=== PATIENT | female | born 1990 | race American Indian/Alaskan Native ===

== ENCOUNTER 2018-03-03 21:42 | Emergency (ER) | payer OTHER ==
[2018-03-03 21:53] VITALS: BMI 46.5
--- NOTE | 2018-03-03 21:59 | ED PDOC ---
Arrival/HPI - General Time Seen by Provider: 03/03/18 21:59 Historian: Patient - History of Present Illness Narrative History of Present Illness (Text): 03/03/18 21:59 This 28 yo female presents to this ED c/o throat feels itching and swollen after she accidentally swallowed scallops x [employer]. Patient stated she is allergic to shellfish. Patient denies sob, cp, skin rash, dizziness, tongue swelling, dysphagia, cough, wheezing, or abnormal gait. Time/Duration: Other (see hpi) Context: Home Past Medical History - Provider Review Nursing Documentation Reviewed: Yes - Infectious Disease Hx of Infectious Diseases: None - Pulmonary Hx Asthma: Yes - Psychiatric Hx Substance Use: No - Anesthesia Hx Anesthesia: No Family/Social History - Physician Review Nursing Documentation Reviewed: Yes Family/Social History: Other (noncontributory) Smoking Status: Unknown If Ever Smoked Hx Alcohol Use: No Hx Substance Use: No Allergies/Home Meds Allergies/Adverse Reactions: Allergies shellfish derived Allergy (Verified 03/03/18 21:53) RASH Home Medications: Home Meds Medication Instructions Recorded Confirmed Albuterol HFA [Ventolin HFA 90 1 puff INH PRN PRN 03/03/18 03/03/18 mcg/actuation (8 g)] Review of Systems - Review of Systems Constitutional: Normal. absent: Fatigue, Weight Change, Fevers Eyes: Normal ENT: Other (see hpi) Respiratory: Normal. absent: SOB, Cough, Sputum, Wheezing Cardiovascular: Normal. absent: Chest Pain, Palpitations, Edema, Calf Pain, DE PAZ , Orthopnea, Syncope Gastrointestinal: Normal. absent: Abdominal Pain, Nausea, Vomiting Genitourinary Female: Normal. absent: Dysuria, Frequency Musculoskeletal: Normal. absent: Back Pain, Neck Pain Skin: Normal. absent: Rash Neurological: Normal. absent: Headache, Dizziness Endocrine: Normal Hemo/Lymphatic: Normal Psychiatric: Normal. absent: Anxiety Physical Exam Vital Signs Temp Pulse Resp BP Pulse Ox 03/03/18 22:02 98.8 F 85 18 155/82 H 98 Temperature: Afebrile Blood Pressure: Normal Pulse: Regular Respiratory Rate: Normal Appearance: Positive for: Well-Appearing, Non-Toxic, Comfortable Pain Distress: None Mental Status: Positive for: Alert and Oriented X 3 - Systems Exam Head: Present: Atraumatic, Normocephalic Pupils: Present: PERRL Extroacular Muscles: Present: EOMI Conjunctiva: Present: Normal Mouth: Present: Moist Mucous Membranes, Normal Lips, Normal Tounge. No: Drooling Pharnyx: Present: Normal. No: ERYTHEMA, EXUDATE, TONSILS ENLARGED, Peritonsilar Swelling, Uvular Deviation, Muffled/Hoarse Voice, Strider, Soft Palate/Uvular Edema Neck: Present: Normal Range of Motion Respiratory/Chest: Present: Clear to Auscultation, Good Air Exchange. No: Respiratory Distress, Accessory Muscle Use Cardiovascular: Present: Regular Rate and Rhythm, Normal S1, S2. No: Murmurs Abdomen: No: Tenderness, Distention, Peritoneal Signs Back: Present: Normal Inspection Upper Extremity: Present: Normal Inspection. No: Cyanosis, Edema Lower Extremity: Present: Normal Inspection. No: Edema Neurological: Present: GCS=15, CN II-XII Intact, Speech Normal Skin: Present: Warm, Dry, Normal Color. No: Rashes Psychiatric: Present: Alert, Oriented x 3, Normal Insight, Normal Concentration Medical Decision Making ED Course and Treatment: 03/04/18 00:46 Re-evaluation. Patient feels better. Discussed results and plan with patient who expresses understanding. All questions answered and there is agreement with the plan to discharge home with instructions. Patient stable for discharge. Return if symptoms persist or worsen. Lungs CTA b/l. Oropharyngeal is patent. Patient feels well, and she wishes to be discharge home. Patient was recommended to see her PMD in 1-2 days. Re-evaluation Time: 00:47 Reassessment Condition: Re-examined, Improved - Medication Orders Current Medication Orders: Discontinued Medications Diphenhydramine HCl (Benadryl) 25 mg IVP STAT STA Stop: 03/03/18 22:07 Last Admin: 03/03/18 22:31 Dose: 25 mg IVP Administration Document 03/03/18 22:31 JARED (Rec: 03/03/18 22:31 JARED [id number]) Charges for Administration # of IVP Administrations 1 Famotidine (Pepcid 20mg/50ml Premix) 20 mg in 50 mls @ 100 mls/hr IVPB STAT STA Stop: 03/03/18 22:35 Last Admin: 03/03/18 22:30 Dose: 100 mls/hr eMAR Start Stop Document 03/03/18 22:30 JOL (Rec: 03/03/18 22:31 OLLIEL [id number]) Intravenous Solution Start Date 03/03/18 Start Time 22:30 End Date 03/03/18 End time 23:00 Total Infusion Time 30 Sodium Chloride (Sodium Chloride 0.9%) 1,000 mls @ 999 mls/hr IV .Q1H1M STA Stop: 03/03/18 23:19 Last Admin: 03/03/18 22:31 Dose: 999 mls/hr eMAR Start Stop Document 03/03/18 22:31 JOL (Rec: 03/03/18 22:31 OLLIEL [id number]) Intravenous Solution Start Date 03/03/18 Start Time 22:31 End Date 03/03/18 End time 23:31 Total Infusion Time 60 Methylprednisolone (Solu-Medrol) 125 mg IVP STAT STA Stop: 03/03/18 22:06 Last Admin: 03/03/18 22:32 Dose: 125 mg IVP Administration Document 03/03/18 22:32 JOL (Rec: 03/03/18 22:32 OLLIEL [id number]) Charges for Administration # of IVP Administrations 1 Disposition/Present on Arrival - Present on Arrival Any Indicators Present on Arrival: No History of DVT/PE: No History of Uncontrolled Diabetes: No Urinary Catheter: No History Surgical Site Infection Following: None - Disposition Have Diagnosis and Disposition been Completed?: Yes Diagnosis: Allergic reaction to shellfish Disposition: HOME/ ROUTINE Disposition Time: 00:48 Patient Plan: Discharge Patient Problems: Current Active Problems Problem Status Onset Allergic reaction to shellfish Acute Condition: GOOD Discharge Instructions (ExitCare): Allergy to Shellfish Additional Instructions: Call private doctor for follow up visit in 1-2 days. Take medication as instructed. Epi pen to be used for anaphylaxis only such as feeling you are going to faint. If symptoms return, you would need to come back to Emergency. Prescriptions: Epinephrine HCl [Epipen Auto-Injector] 0.3 mg MR DAILY PRN #1 packet PRN Reason: Anaphylaxis Famotidine [Pepcid] 40 mg PO DAILY #10 tablet Hydroxyzine Pamoate [Vistaril] 25 mg PO Q6H PRN #20 capsule PRN Reason: Itching / Pruritus predniSONE [predniSONE Tab] 60 mg PO DAILY #9 tab Referrals: Sarah Huggins MD [Staff Provider] - Follow up with primary [facility] [employer] [facility] [Outside] - Follow up with primary Forms: WORK NOTE
[2018-03-03] MEDS ORDERED: Famotidine 20mg/50ml 20 MG/50 ML BAG IVPB STA (22:06)
[2018-03-03] MEDS ORDERED: DiphenhydrAMINE 50 mg/ml Inj IVP STA (22:06)
[2018-03-03] MEDS ORDERED: Sodium Chloride 0.9% 1,000 ML IV STA (22:19)
[2018-03-03 22:21] VITALS: O2SAT 98
[2018-03-04 02:04] VITALS: BP 139/85; PULSE 82; RESP 16; TEMP 98
== END 2018-03-04 02:03 | disposition home or self-care (01) ==
LOC: ED 21:42
DX: T78.1XXA Other adverse food reactions, not elsewhere classified, initial encounter (principal); X58.XXXA Exposure to other specified factors, initial encounter
CPT/HCPCS: 81025; 96361; 96365; 96375; 99284; J1200; J2930; J7030